=== PATIENT | female | born 2000 | race Caucasian/White ===

== ENCOUNTER 2023-06-07 12:55 | Emergency (ER) | payer BC ==
[~2023-06-07] VITALS: Ht 162.6 cm; Wt 73.0 kg
[2023-06-07 13:04] VITALS: BP 149/68; PULSE 101; RESP 19; TEMP 98; O2SAT 98
[2023-06-07] MEDS: ACETAMINOPHEN 325MG TABLET PO STA (13:33)
[2023-06-07] MEDS: DIPHENHYDRAMINE 25MG CAPSULE PO ONE (13:33)
[2023-06-07] MEDS: ONDANSETRON 4MG ODT PO ONE (13:39)
[2023-06-07] MEDS: PREDNISONE 20MG TABLET PO ONE (13:40)
[2023-06-07 14:16] LABS: CLARITY URINE CLEAR (CLEAR); COLOR URINE YELLOW (YELLOW); GLUCOSE URINE NEGATIVE (NEGATIVE); KETONES URINE NEGATIVE (NEGATIVE); LEUKOCYTE ESTERASE URINE NEGATIVE (NEGATIVE); NITRITE URINE NEGATIVE (NEGATIVE); OCCULT BLOOD URINE NEGATIVE (NEGATIVE); PH URINE >=9.0 (4.5-8.0); PROTEIN URINE 1+ (NEGATIVE); SPECIFIC GRAVITY URINE 1.022 (1.005-1.030); UROBILINOGEN URINE 0.2 E.U./dL (0.2-1.0)
[2023-06-07 14:28] LABS: MUCUS URINE TRACE /lpf (< = 2+); SQUAMOUS EPITHELIAL CELL URINE 3+ /lpf (RARE/1+)
[2023-06-07 14:29] LABS: BACTERIA URINE 1+
[2023-06-07 14:30] LABS: RBC URINE 0-2 /hpf (0-2); WBC URINE 0-2 /hpf (0-2)
[2023-06-07 15:05] LABS: HEMATOCRIT. 39.2 % (36.0-48.0); HEMOGLOBIN. 13.1 g/dL (12.0-16.0); MEAN CORPUSCULAR HEMOGLOBIN 28.8 pg (28.0-32.0); MEAN CORPUSCULAR HGB CONC 33.5 g/dL (31.0-37.0); MEAN CORPUSCULAR VOLUME 85.8 fL (81.0-99.0); MEAN PLATELET VOLUME 9.4 fl (7.4-10.4); PLATELET 257 x1000/uL (130-400); RED BLOOD CELL COUNT 4.57 mill/uL (4.2-5.4); RED CELL DISTRIBUTION WIDTH 14.3 % (11.6-14.6); WHITE BLOOD COUNT 8.7 x1000/uL (4.5-11.0)
[2023-06-07 15:19] LABS: ALANINE AMINOTRANSFERASE 9 IU/L (10-49); ALBUMIN 5.1 g/dL (3.2-4.8); ASPARTATE AMINOTRANSFERASE 24 IU/L (<34); BILIRUBIN TOTAL 0.9 mg/dL (0.1-1.0); CARBON DIOXIDE 28 mEq/L (21-32); CHLORIDE 105 mEq/L (98-107); CREATININE 0.7 mg/dL (0.6-1.0); GLUCOSE 89 mg/dL (70-105); POTASSIUM 3.8 mEq/L (3.5-5.1); PROTEIN TOTAL 8.3 g/dL (6.0-8.3); SODIUM 139 mEq/L (136-145); UREA NITROGEN BLOOD 8 mg/dL (9-23)
[2023-06-07 15:25] LABS: DIFFERENTIAL COMMENT 1
[2023-06-07 15:50] LABS: HCG SCREEN NEGATIVE
[2023-06-07 17:10] LABS: PLATELET ESTIMATE NORMAL
[2023-06-08] MEDS ORDERED: PREDNISONE 20MG TABLET PO SCH (09:00)
== END 2023-06-07 15:44 | disposition home or self-care (01) ==
LOC: ER 14:10
DX: B34.9 Viral infection, unspecified (principal); R21 Rash and other nonspecific skin eruption; Z20.822 Contact with and (suspected) exposure to COVID-19; J45.909 Unspecified asthma, uncomplicated
CPT/HCPCS: 99284; 71045; 87426; 80053; 81003; 81025; 84703; 87430; 85025; 85651; 87070; 87804 ×2; 36415; 86038; Q0163; Q0162; J7512